=== PATIENT | female | born 1970 | race Asian ===

== ENCOUNTER 2020-06-04 18:20 | Emergency (ER) | payer OTHER ==
[~2020-06-04] VITALS: Ht 170.2 cm; Wt 93.0 kg
--- NOTE | 2020-06-04 18:20 | NUR ---
PT BIB C/O FEVER WHILE WORKING THIS AFTERNOON AND HEADACHE. PT IS AAOX4, NOT IN RESPIRATORY DISTTRESS, HOOKED TO SECONDARY ART TEACHER, KEPT RESTED AND COMFORTABLE. WILL CONTINUE TO MONITOR.
--- NOTE | 2020-06-04 18:25 | NUR ---
CATALINA CALLAHAN AT BEDSIDE FOR EVAL.
--- NOTE | 2020-06-04 18:39 | NUR ---
COVID SPECIMEN COLLECTED AND SENT TO LAB.
--- NOTE | 2020-06-04 19:09 | NUR ---
PER LAB COVID +
[2020-06-04 19:34] VITALS: BP 158/89
--- NOTE | 2020-06-07 07:44 | NUR ---
INFORM PT RE: COVID POSITIVE PCR RESULT.
== END 2020-06-04 19:34 | disposition home or self-care (01) ==
LOC: ER 18:23
DX: U07.1 COVID-19 (principal); I10 Essential (primary) hypertension; E11.9 Type 2 diabetes mellitus without complications; E78.5 Hyperlipidemia, unspecified; R00.0 Tachycardia, unspecified
CPT/HCPCS: 87426; 99283; C9803; U0003